=== PATIENT | female | born 1985 | race Caucasian/White ===

== ENCOUNTER 2023-06-15 19:01 | Emergency (ER) | payer MEDICAID ==
[~2023-06-15] VITALS: Ht 154.9 cm; Wt 83.0 kg
[2023-06-15 19:10] VITALS: BP 125/76; PULSE 96; RESP 20; TEMP 97.1; O2SAT 100
[2023-06-15] MEDS ORDERED: KETOROLAC 30 MG/ML VIAL IM ONE (20:40)
[2023-06-15] MEDS ORDERED: HYDROcodone/APAP 5/325 MG 1 TAB TAB PO ONE (20:40)
[2023-06-15] MEDS ORDERED: LID5T TP (21:20)
[2023-06-15] MEDS ORDERED: IBUP-2213 PO (21:20)
[2023-06-15] MEDS ORDERED: CYCL-711 PO (21:20)
== END 2023-06-15 21:21 | disposition home or self-care (01) ==
LOC: MED 19:01
DX: M54.50 Low back pain, unspecified (principal); Z79.899 Other long term (current) drug therapy
CPT/HCPCS: 96372; 99283; J1885